=== PATIENT | female | born 1995 | race Caucasian/White ===

== ENCOUNTER 2023-11-28 19:20 | Emergency (ER) | payer MEDICAID ==
[~2023-11-28] VITALS: Ht 170.2 cm; Wt 155.0 kg
[2023-11-28] MEDS ORDERED: HYDR-3686 PO (20:56)
[2023-11-28] MEDS: LORazepam 1 MG tablet PO ONE (21:28)
[2023-11-28 21:33] VITALS: BP 134/89; PULSE 100; RESP 18; TEMP 97.8; O2SAT 97
== END 2023-11-28 21:35 | disposition home or self-care (01) ==
LOC: ER 19:21
DX: F41.9 Anxiety disorder, unspecified (principal); Z79.899 Other long term (current) drug therapy
CPT/HCPCS: 99283

== ENCOUNTER 2025-02-08 12:37 | Emergency (ER) | payer MEDICAID ==
[~2025-02-08] VITALS: Ht 170.2 cm; Wt 154.3 kg
[2025-02-08 12:41] VITALS: BP 163/99; PULSE 94; RESP 16; TEMP 98.1; O2SAT 96
--- NOTE | 2025-02-08 14:36 | Physician Documentation ---
History of Present Illness ~ Chief Complaint: Ear Pain Stated Complaint: EAR ACHE Time Seen by MD: 13:54 Primary Medical Doctor: [facility] Source: patient, RN/MD HPI Patient is seen today with complaints of right-sided ear pain after using a Q- tip that when a little deep inner ear. Patient denies any bleeding from her ear but states her hearing sounds muffled and feels like done something is clogged inner ear. Patient has no new or other concern or complaint at this time. She denies any recent illness or cold-like symptoms or fever or chills or body aches. She denies any chest pain or shortness of breath or abdominal pain or nausea, vomiting, diarrhea. She has no other concern or complaint at this time. Medication Reconciliation Allergies: Coded Allergies: No Known Allergies (Unverified , 11/28/23) Review of Systems Constitutional: Denies: chills, fever, weakness Eyes: Denies: pain, blurred vision ENT: Denies: ear pain, nose pain, throat pain, mouth pain Respiratory: Denies: cough, shortness of breath Cardiovascular: Denies: chest pain, palpitations Gastrointestinal: Denies: abdominal pain, nausea, vomiting Genitourinary: Denies: burning, dysuria Female Genitalia: Denies: vaginal discharge, pelvic pain Neurological: Denies: headache, dizziness Musculoskeletal: Denies: pain, swelling Integumentary: Denies: rash, lesions Allergic/Immunologic: Denies: hives, itching Hematologic/Lymphatic: Denies: no symptoms reported Psychiatric: Denies: depression, anxiety Physical Exam Vital Signs: Temperature: 98.1, Source: Oral, Heart Rate: 94, Respiratory Rate: 16, BP: 163/99, Pulse Oximetry: 96, Weight: 154.300 Oxygen Flow Rate: 0 Physical Exam General: Awake and Alert, no acute distress. HEENT: On exam the patient is TMs are clear bilaterally and unremarkable. The right-sided TM has no sign of perforation and no rupture and no sign of infection and no bulging. Cone of light is unremarkable bilaterally. Patient does have irritation of the canal in the right ear. Conjunctiva pink, Sclera clear, Mucus Membranes moist. Neck: Supple without masses and tenderness. Resp: Unlabored. Lungs clear to auscultation bilaterally. Heart: Regular Rate and rhythm, normal S1 and S2 without murmur, rub or gallop. Extremities: No cyanosis,clubbing or edema. Skin: Warm and Dry. Progress Results/Orders Results/Orders Vital Signs 02/08/25 12:41 Temp 98.1 Pulse 94 Resp 16 B/P (MAP) 163/99 Pulse Ox 96 O2 Flow Rate 0 Medical Decision Making Findings Patient is seen today with complaints of right-sided ear pain after using a Q- tip that when a little deep inner ear. Patient denies any bleeding from her ear but states her hearing sounds muffled and feels like done something is clogged inner ear. Patient has no new or other concern or complaint at this time. She denies any recent illness or cold-like symptoms or fever or chills or body aches. She denies any chest pain or shortness of breath or abdominal pain or nausea, vomiting, diarrhea. She has no other concern or complaint at this time. Patient will follow up with primary care in 2-5 days if no better as needed sooner. I do not appreciate any abnormality of her ears drums bilaterally and no sign of perforation or injury. Patient has right ear canal did show some irritation. Patient will return to ED with any worsening, concerning or changing symptoms. Departure Disposition: HOME / SELF CARE / HOMELESS Impression: Primary Impression: Otalgia of right ear Condition: Stable Discharge Instructions: Earache, Adult Additional Instructions: Patient will follow up with primary care in 2-5 days if no better as needed soon er. I do not appreciate any abnormality of her ears drums bilaterally and no sign of perforation or injury. Patient has right ear canal did show some irritation. Patient will return to ED with any worsening, concerning or changing symptoms. Referrals: NO PRIMARY CARE PROVIDER (PCP) Signature Scribe Signature: No scribe Attestation: No scribe KALIA CHOW PAC February 08, 2025 14:36
== END 2025-02-08 14:52 | disposition home or self-care (01) ==
LOC: ER 12:37
DX: H92.01 Otalgia, right ear (principal)
CPT/HCPCS: 99281